=== PATIENT | female | born 1980 | race Caucasian/White ===

== ENCOUNTER 2018-11-14 16:15 | Inpatient (IN) | payer BC ==
[2018-11-14 16:53] VITALS: BMI 28.1
[2018-11-14 17:35] LABS: Hemoglobin 12.5 g/dL (12.0-16.0); Mean Corpuscular HGB CONC 33.7 g/dL (32.0-36.0); Mean Corpuscular Hemoglobin 27.7 pg (27.0-31.0); Mean Corpuscular Volume 82.1 fL (78.0-98.0); Mean Platelet Volume 8.4 fL (7.4-10.4); Platelet Count 299 thou/uL (130-400); RBC Distribution Width 13.4 % (11.5-14.5); Red Blood Cell (RBC) Count 4.51 mill/uL (4.20-5.40); White Blood Cell (WBC) Count 9.9 thou/uL (4.8-10.8)
[2018-11-14 18:03] LABS: BHCG - Serum Negative (NEGATIVE); Pregs Control Background? CLEAR/WHITE (CLR/WHITE); Pregs Control Bar Appear? YES (CONTROL BAR)
[2018-11-19] MEDS ORDERED: Gabapentin 300 MG CAP ONE (06:24)
[2018-11-19] MEDS ORDERED: CeleCOXIB 100 MG CAP ONE (06:25)
[2018-11-19] MEDS ORDERED: Famotidine/PF 20 mg/2ml Vial ONE (06:25)
[2018-11-19] MEDS ORDERED: Fentanyl 250 MCG/5 ML VIAL ONE (06:31)
[2018-11-19] MEDS ORDERED: Midazolam HCl 2 mg/2 ml Vial ONE (06:31)
[2018-11-19] MEDS ORDERED: Bupivacaine HCl 0.5%/Epinephrine 1:200,000/PF 30 ml Vial ONE (07:02)
[2018-11-19] MEDS ORDERED: Lidocaine 1% w/Epinephrine 1:100K 20 ML VIAL ONE (07:02)
[2018-11-19] MEDS ORDERED: Zolpidem Tartrate 5 MG TAB PO PRN (10:00)
[2018-11-19] MEDS ORDERED: Morphine 4 MG/ML VIAL SLOW IVP PRN (10:00)
[2018-11-19] MEDS ORDERED: Promethazine HCl 25 MG/ML VIAL IM PRN ×2 (10:17→10:32)
[2018-11-19] MEDS ORDERED: traMADol HCl 50 MG TAB PO PRN ×2 (10:17)
[2018-11-19] MEDS ORDERED: diphenhydrAMINE 25 MG CAP PO PRN (10:17)
[2018-11-19] MEDS ORDERED: Bisacodyl 10 MG SUPP PR PRN (10:17)
[2018-11-19] MEDS ORDERED: Ondansetron HCl/PF 4 MG/2 ML Vial IVP PRN (10:32)
[2018-11-19] MEDS ORDERED: Promethazine HCl 25 MG/ML VIAL SLOW IVP PRN (10:32)
[2018-11-19] MEDS ORDERED: Fentanyl 100 MCG/2 ML VIAL ONE (10:34)
[2018-11-19] MEDS ORDERED: Gabapentin 400 MG CAP PO SCH ×3 (11:00→21:00)
[2018-11-19] MEDS: Sodium Chloride 0.9% 1,000 ML IV SCH ×2 (12:07→18:19)
[2018-11-19] MEDS: Ketorolac Tromethamine 30 MG/ML VIAL IVP SCH ×2 (12:45→17:34)
[2018-11-19] MEDS: Acetaminophen 1,000 MG in Premix Bag 1 BAG IVPB SCH ×2 (12:46→17:34)
[2018-11-19] MEDS ORDERED: Ibuprofen 800 MG TAB PO SCH (14:00)
[2018-11-19] MEDS ORDERED: Lidocaine 1% PF 5 ML VIAL ONE (14:26)
[2018-11-19] MEDS ORDERED: PROPOFOL 200 MG/20 ML VIAL ONE (14:26)
[2018-11-19] MEDS ORDERED: ePHEDrine 50 MG/ML VIAL ONE (14:26)
[2018-11-19] MEDS ORDERED: Glycopyrrolate 0.2 MG/ML 5 ML SYRINGE ONE (14:26)
[2018-11-19] MEDS ORDERED: Rocuronium Bromide 10 MG/ML (10ML VIAL) ONE (14:26)
[2018-11-19] MEDS ORDERED: Ondansetron PF 4 MG/2 ML Vial ONE (14:26)
[2018-11-19] MEDS: Ondansetron PF 4 MG/2 ML Vial IVP PRN (15:42)
--- NOTE | 2018-11-19 16:23 | OP ---
DATE OF PROCEDURE: 11/19/2018 PREOPERATIVE DIAGNOSES: 1. A 38-year-old white female with dysmenorrhea, menorrhagia, unresponsive to medical management. 2. Pelvic pain. 3. Clinical adenomyosis. 4. Genuine stress incontinence. POSTOPERATIVE DIAGNOSES: 1. A 38-year-old white female with dysmenorrhea, menorrhagia, unresponsive to medical management. 2. Pelvic pain. 3. Clinical adenomyosis. 4. Genuine stress incontinence. PROCEDURES PERFORMED: 1. Robotic total laparoscopic hysterectomy and bilateral salpingectomy. 2. Advantage Fit TVT with cystoscopy. 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 Kimberly Chavarria MD. 2. Allyson Polk PA-C. ANESTHESIA: General endotracheal. ESTIMATED BLOOD LOSS: 50 mL. COMPLICATIONS: None. COUNTS: Correct x2. FINDINGS: 1. Normal bilateral fallopian tubes and ovaries. 2. Uterus boggy appearing with some erythema changes suggestive of adenomyosis. 3. Postprocedure Advantage Fit TVT cystoscopy of the bladder showed it to be watertight to fluid distention and no bladder mucosal trauma or injuries noted. 4. Bilateral ureteral efflux visualized post TVT procedure. DISPOSITION: Recovery room, stable. DESCRIPTION OF PROCEDURE: The patient previously received informed consent in regard to surgery. She was taken back to the operating room, where she received a general endotracheal anesthetic agent without complications. She was placed in the dorsal lithotomy position with use of Jose E stirrups and prepped and draped in usual sterile fashion. Ellsworth catheter was placed at this time and a side-arm speculum was placed in the vagina. Anterior lip of the cervix was grasped with single-toothed tenaculum. The uterus sounded to 9 cm and a size 8 cm VERONICA uterine manipulator with a 4.0 cm cervical cup was placed. Attention next was then turned to the abdomen. Perspective trocar sites were infiltrated with 0.5% Marcaine with epinephrine. A 12-mm supraumbilical incision was made. Veress needle was entered into the peritoneal cavity and the patient's pressure was noted to be less than 5 mm. The abdomen was insufflated with the patient's pressure of 15. The Veress needle was removed. A size 12 mm trocar was placed in the supraumbilical incision site. The robotic laparoscope was introduced through trocar sleeve confirming proper entry. Next, an 8 mm bilateral lower quadrant robotic trocars were placed under laparoscopic guidance along with the right upper quadrant 11-mm dietetic assistant port. The patient was placed in Trendelenburg position and the robot was docked in usual fashion. I proceeded to carry out the surgery with operative console while my assistants remained at the bedside. The uterus was elevated from the pelvis. The left fallopian tube was identified and grasped by my dietetic assistant at the fimbria. The mesosalpinx was incised with the monopolar scissors and edges were bipolar fenestrated cauterized until the left tube was then excised and removed through the right upper quadrant trocar assistants port. The left uterine ovarian ligament was then coagulated, transected it, and then serial coagulation of the broad ligament hugging close to the uterus was carried out to the left round ligament was reached. It was coagulated and transected, and the anterior leaf of the broad ligament was entered. The vesicouterine peritoneum was incised under direct visualization with both sharp and blunt dissection, dissected the bladder atraumatically past the cervical vaginal angle. The right uterine vessels were skeletonized anteriorly and posteriorly and they were cauterized in the internal cervical os region. This was then carried out on the right fallopian tube in similar fashion, coagulating the mesosalpinx, transecting and then delivering the right fallopian tube through the right upper quadrant dietetic assistant port. The right utero-ovarian ligament was coagulated and transected. Serial coagulation of broad ligament again hugging close to uterus was carried out till the right round ligament was reached. It was coagulated and transected. The anterior leaf of the broad ligament was then entered. The vesicouterine peritoneum was incised with both sharp and blunt dissection, dropping the bladder atraumatically past the cervical vaginal angle. The right uterine vessels again were skeletonized and coagulated in the internal cervical os region. Once we felt that the bladder had been safely dissected past the cervical vaginal angle, the anterior colpotomy was then created from 12 o'clock to 3 o'clock and 12 o'clock to 9 o'clock position and completed posteriorly from 6 o'clock to 3 o'clock and 6 o'clock to 9 o'clock. The specimen was then delivered in the vaginal vault. There was a small uterine artery bleeder in the left angle that was coagulated with bipolar fenestrated cautery. The remainder of the cuff was cauterized of any areas of oozing for hemostasis. The monopolar scissor had been exchanged for a Cj needle wheat combine driver. My dietetic assistant then brought in a Stratafix suture and the cuff was closed in full-thickness closure starting at the right angle to the left angle back towards the right angle with good hemostasis confirmation. The pelvis was irrigated and suctioned and the pedicle sites were inspected and noted to be hemostatic. The robot was then undocked and trocar sleeves were removed. We closed the fascial defect of the supraumbilical region with a [id number] suture of 0 Vicryl. The remainder of trocar sites were closed with 4-0 Monocryl and Dermabond. We then proceeded to carry out the Advantage Fit TVT. The patient had more extension of her legs and more flexion of her legs in dorsal lithotomy position to allow for us to proceed with a vaginal procedure. The Ellsworth catheter was in place. The midline of the urethra was noted just above the symphysis pubis and 2 cm lateral to this on each side, it was marked with a marking pen. The red space of Retzius was then hydrodissected with approximately 40 mL of sterile saline with a spinal needle and syringe. The vagina had a weighted speculum placed. The mid urethra was grasped both superiorly and inferiorly with Allis clamps over the vaginal mucosa and a 1.5 cm mid urethral vaginal mucosal incision was made vertically after infiltration had been carried out with 1% lidocaine with epinephrine in this region bilaterally. The edges of the mucosa were grasped and then the Metzenbaum scissors were utilized to transect submucosally under the vaginal mucosa towards the intersection of the symphysis pubis and inferior pubic rami in the space of Retzius for both the patient's right side and left side. Once this had been completed, then the patient's legs were brought back down more level with her axilla. The Advantage Fit TVT trocar was loaded with the mesh and on the patient's left side, we placed the trocar through the previously dissected submucosal dissection site and then the spear of the trocar was then guided as the handle was dropped aiming towards the patient's axilla into the previous marked site. This was popped through the skin and my dietetic assistant grabbed the plastic edge of the mesh. Then, this was repeated in likewise fashion where the other end of the mesh was carried up through with the trocar on the patient's right side, the previously marked spot in the symphysis pubis area. Again, the end of the plastic portion of the mesh was grasped with Gely clamps. The patient's bladder had been deflected at this time to the opposite direction with the Ellsworth Glidewire. The Ellsworth was removed and then cystoscopy with 30-degree scope was carried out. The bladder was distended and the bladder was inspected. There was no evidence of mesh placement through the bladder and the bladder was watertight to fluid distention. The ureteral orifices were visualized and both left and right ureter showed efflux of urine with good jets draining. The cystoscope was then removed, the bladder was drained, and Ellsworth catheter was replaced. The mesh was then tightened to appropriate level by placing a Randolph scissor in the mid urethra behind the mesh and my dietetic assistant pulled the mesh equally on both sides tightening the TVT mesh. Then, the edges were cut in the symphysis pubic area just below the skin. The Randolph scissor was removed and then the vaginal mucosa and the mid urethra area were then closed with 2-0 Vicryl suture securing hemostasis. Moistened Kerlix was used to pack the vaginal vault. Hemostasis was confirmed. Clear urine was draining from the Ellsworth catheter and the patient was awakened from anesthesia and transferred to recovery room in stable condition. Job ID: [id number]
[2018-11-19] MEDS: Simethicone Chewable 80 MG TAB PO PRN (17:34)
[2018-11-20] MEDS: Ketorolac Tromethamine 30 MG/ML VIAL IVP SCH ×3 (00:37→11:36)
[2018-11-20] MEDS: Acetaminophen 1,000 MG in Premix Bag 1 BAG IVPB SCH ×3 (00:40→11:36)
[2018-11-20] MEDS: Ondansetron PF 4 MG/2 ML Vial IVP PRN (02:58)
[2018-11-20] MEDS: Sodium Chloride 0.9% 1,000 ML IV SCH ×2 (04:20→11:33)
--- NOTE | 2018-11-20 07:58 | PDOC.EVN ---
Event Note - Event Note Event Note: S: Some nausea. Toleratuing crackers and liquids. Pain control ok. Having some vertigo-dizzy feeling. O:AFVSS U/O 2100 ml Abdomen:soft, non tender.trochar sites clean and dry. A/P: post op day 1--robotic tlh with tvt. VSS. Mild vertigo-most likely post op anesthesia recovery. Begin voiding trials...
[2018-11-20 09:44] LABS: Hemoglobin 10.7 g/dL (12.0-16.0); Mean Corpuscular HGB CONC 32.6 g/dL (32.0-36.0); Mean Corpuscular Hemoglobin 27.7 pg (27.0-31.0); Mean Platelet Volume 8.6 fL (7.4-10.4); Platelet Count 225 thou/uL (130-400); RBC Distribution Width 13.6 % (11.5-14.5); Red Blood Cell (RBC) Count 3.85 mill/uL (4.20-5.40); White Blood Cell (WBC) Count 9.4 thou/uL (4.8-10.8)
[2018-11-20 11:30] VITALS: BP 112/73; TEMP 98
[2018-11-20] MEDS: Simethicone Chewable 80 MG TAB PO PRN (11:34)
[2018-11-20] MEDS ORDERED: Ibuprofen 800 MG TAB PO SCH (14:00)
--- NOTE | 2018-11-21 06:29 | DIS ---
DATE OF ADMISSION: 11/19/2018 DATE OF DISCHARGE: 11/20/2018 DIAGNOSES: 1. Dysmenorrhea, menorrhagia, unresponsive to medical management, do suspect clinical adenomyosis. 2. Genuine stress incontinence. PROCEDURES PERFORMED: 1. Robotic total laparoscopic hysterectomy and bilateral salpingectomy. 2. Advantage Fit TVT with cystoscopy. SUMMARY OF HOSPITAL COURSE: The patient was admitted on 11/19/2018 and underwent definitive surgical therapy for menorrhagia and dysmenorrhea with a robotic total laparoscopic hysterectomy along with Advantage Fit TVT for genuine stress incontinence. Postoperatively, the patient did well. Vital signs remained stable. She is ambulating and was tolerating diet on postop day #1. She began voiding trials in the morning of postop day #1 and progressed to adequate voids with PVRs less than or equal to 100 mL. She was discharged afternoon on postop day #1 and has followup scheduled in 2 and 6 weeks. DISCHARGE MEDICATIONS: 1. Tramadol 50 mg q.6 hours p.r.n. pain. 2. Bzhe-bpr-sxvlcam ibuprofen as directed. 3. Zofran 4 mg q.6 hours p.r.n. nausea. PATHOLOGY: Pending at the time of this dictation. Job ID: [id number]
[2018-11-24] MEDS ORDERED: Ibuprofen 800 MG TAB PO SCH (22:00)
== END 2018-11-20 15:20 | disposition home or self-care (01) | DRG 743 ==
LOC: SURG A 11-19 06:07 → 3SE 11-19 11:39
PROVIDERS: ADMIT Obstetrics & Gynecology; ATTEND Obstetrics & Gynecology
PROC: 0UT94ZZ Resection of Uterus, Percutaneous Endoscopic Approach (ICD-10-PCS; principal; 2018-11-19)
PROC: 0UT74ZZ Resection of Bilateral Fallopian Tubes, Percutaneous Endoscopic Approach (ICD-10-PCS; 2018-11-19)
PROC: 0TQD8ZZ Repair Urethra, Via Natural or Artificial Opening Endoscopic (ICD-10-PCS; 2018-11-19)
PROC: 8E0W4CZ Robotic Assisted Procedure of Trunk Region, Percutaneous Endoscopic Approach (ICD-10-PCS; 2018-11-19)
DX: N94.6 Dysmenorrhea, unspecified (principal); N92.0 Excessive and frequent menstruation with regular cycle; N39.3 Stress incontinence (female) (male); N80.0 Endometriosis of uterus
CPT/HCPCS: 36415; 84703; 85027; 86850; 86900; 86901; 88307; J0131; J0670; J1885; J2001; J2250; J2405; J3010; S0028